=== PATIENT | male | born 1955 | race Caucasian/White ===

== ENCOUNTER 2016-09-29 08:51 | Emergency (ER) | payer BC ==
[2016-09-29 09:11] VITALS: BP 170/93
[2016-09-29] MEDS ORDERED: predniSONE TAB* 20 MG PO ONE (09:44)
[2016-09-29] MEDS ORDERED: Albuterol/Ipratropium NEB.SOL* Albuterol 2.5 MG/Ipratropium 0.5 MG 3 ML INH ONE ×2 (09:44)
--- NOTE | 2016-09-29 10:03 | ED ---
Albaro Edouard Alok, scribed for Iman Carmen MD on 09/29/16 at 0944 . Respiratory - HPI Summary HPI Summary: 61 y/o male presents to the accompanied by his with a productive cough for the last 5 days. Pt states he has been coughing green sputum and states he feels a "thickness" in the back of his throat. Pt also notes head congestion with generally clear rhinorrhea for the past 5 days as well but states it was green like his productive cough yesterday. Pt also notes diaphoresis while at rest but has not taken his temperature at home. The pt notes wheezing especially when in supine position. Pt denies ear pain currently but states he had right ear throbbing yesterday. Pt denies sore throat, abd pain or diarrhea. No cp, sob. No h/o lung disease. Pt is a heavy smoker but has not smoked for the past week. Pt states he was last with a friend 1 week ago who was healthy at the time but now has been diagnosed with PNA. PMHx includes medically controlled chronic back pain and HTN. Patient medication reviewed at visit. - History of Current Complaint Chief Complaint: UCRespiratory Stated Complaint: COUGH CONGESTION Time Seen by Provider: 09/29/16 09:13 Hx Obtained From: Patient Onset/Duration: Gradual Onset, Lasting Weeks, Still Present Timing: Constant Initial Severity: Moderate Current Severity: Moderate Character: Cough (Productive) Sputum Amount: Moderate Sputum Color: Clear, Green Aggravating Factor(s): Other - supine position Alleviating Factor(s): Nothing Associated Signs and Symptoms: Wheezing, Diaphoresis, Nasal Congestion - Allergy/Home Medications Allergies/Adverse Reactions: Allergies Allergy/AdvReac Type Severity Reaction Status Date / Time No Known Allergies Allergy Verified 09/29/16 09:11 Home Medications: Home Medications Hydrochlorothiazide TAB* [Hydrodiuril TAB*] 25 mg PO DAILY 09/29/16 [History Confirmed 09/29/16] Irbesartan [Avapro] 300 mg PO 09/29/16 [History] oxyCODONE TAB* [Roxycodone TAB 5 mg*] 5 mg PO Q4H PRN 09/29/16 [History Confirmed 09/29/16] PMH/Surg Hx/FS Hx/Imm Hx Previously Healthy: No Endocrine/Hematology History: Reports: Hx Diabetes - boarderline Denies: Hx Thyroid Disease Cardiovascular History: Reports: Hx Hypertension Respiratory History: Denies: Hx Asthma, Hx Chronic Obstructive Pulmonary Disease (COPD) GI History: Denies: Hx Ulcer Infectious Disease History: No Infectious Disease History: Denies: Hx Hepatitis, Hx Human Immunodeficiency Virus (HIV), Traveled Outside the [place] in Last 30 Days - Family History Known Family History: Positive: Hypertension, Diabetes - Social History Lives: With Family Alcohol Use: None Substance Use Type: Reports: None Smoking Status (MU): Heavy Every Day Tobacco Smoker Amount Used/How Often: 2 pks per day Review of Systems Positive: Fatigue, Skin Diaphoresis, Other - decreased appetitie Eyes: Negative Positive: Ear Ache - Yesterday, Nasal Discharge. Negative: Sore Throat Cardiovascular: Negative Positive: Cough. Negative: Shortness Of Breath Negative: Abdominal Pain, Diarrhea Genitourinary: Negative Musculoskeletal: Negative Skin: Negative Neurological: Negative Psychological: Normal All Other Systems Reviewed And Are Negative: Yes Physical Exam Triage Information Reviewed: Yes Vital Signs On Initial Exam: Initial Vitals Temp Pulse Resp BP Pulse Ox 96.6 F 102 20 170/93 87 09/29/16 09:03 09/29/16 09:03 09/29/16 09:03 09/29/16 09:03 09/29/16 09:03 Vital Signs Reviewed: Yes Appearance: Positive: Well-Appearing, No Pain Distress Skin: Positive: Warm, Skin Color Reflects Adequate Perfusion, Dry Head/Face: Positive: Normal Head/Face Inspection Eyes: Positive: Normal, EOMI, JOSEPH ENT: Positive: Normal ENT inspection, Hearing grossly normal, Pharynx normal, TMs normal, Other - fullness in oropharynx - no erythema, exudate Neck: Positive: Supple, Nontender, No Lymphadenopathy Respiratory/Lung Sounds: Positive: Wheezes - scattered wheeze + coarse cough with green sputum No accessory muscle use or increased WOB Cardiovascular: Positive: Normal, RRR Abdomen Description: Positive: Nontender, No Organomegaly, Soft Bowel Sounds: Positive: Present Musculoskeletal: Positive: Normal Neurological: Positive: Normal, Sensory/Motor Intact, Alert, Oriented to Person Place, Time Psychiatric: Positive: Normal AVPU Assessment: Alert - Shaji Coma Scale Best Eye Response: 4 - Spontaneous Best Motor Response: 6 - Obeys Commands Best Verbal Response: 5 - Oriented Diagnostics - Vital Signs Vital Signs Temp Pulse Resp BP Pulse Ox 09/29/16 09:20 97.5 F 09/29/16 09:03 96.6 F 102 20 170/93 87 - Laboratory Lab Statement: Any lab studies that have been ordered have been reviewed, and results considered in the medical decision making process. - Radiology CXR Xray Interpretation: Positive (See Comments) - IMPRESSION: NO ACTIVE DISEASE. SUGGEST FOLLOW-UP CLINICALLY INDICATED. Radiology Interpretation Completed By: Radiologist Re-Evaluation - Re-Evaluation First Eval Re-Evaluation Time: 11:17 Comment: PT states breathing feels better. Pt continues with sinus congestion. No CP, No SOB. BS clear throughout. No increased WOB - speaking full sentences. Pt now with RA sat 82-84% confirmed on 2 fingers. d/w pt and - pt in agreement for transfer to [facility]. d/w MAINE Solares - and [facility] - accepting in transfer. o2 placed on pt. IV hep loc. transfer forms complete Disposition - Course Assessment/Plan: PT with productive cough x 5 days - green. Pt with decreased sat at triage. Pt with a h/o heavy tobacco use. diff included COPD, bronchitis , URI, pna. d/w pt and concern related to decreaed oxygen sat. Pt adamat does not want to go to hospital. Will give nebs, steroids and cxr. will reassess - Diagnoses Provider Diagnoses: Hypoxia Discharge - Discharge Plan Condition: Good Disposition: OTHER Discharge Disposition Comment: [facility] by EMS for additional eval The documentation as recorded by the Albaro arrington Alok accurately reflects the service I personally performed and the decisions made by me, Iman Carmen MD.
--- NOTE | 2016-09-29 10:38 | RAD ---
INDICATION: Cough COMPARISON: None TECHNIQUE: PA and lateral dual-energy views were obtained. FINDINGS: Bones/Soft Tissues: There are no acute bony findings. Cardiomediastinal: The heart is normal in size. Central pulmonary vessels are mildly prominent. Lungs: There is mild hyperinflation with presumed mild chronic interstitial change. Pleura: There are no pleural effusions. Other: None IMPRESSION: NO ACTIVE DISEASE. SUGGEST FOLLOW-UP CLINICALLY INDICATED.
== END 2016-09-29 12:00 ==
LOC: UCEAST 08:51
DX: R09.02 Hypoxemia (principal); I10 Essential (primary) hypertension; R73.03 Prediabetes; F17.290 Nicotine dependence, other tobacco product, uncomplicated
CPT/HCPCS: 71020; 99213; A9270-GY; G0463; J7512

== ENCOUNTER 2016-09-29 12:11 | Inpatient (IN) | payer BC ==
[2016-09-29] MEDS ORDERED: Albuterol/Ipratropium NEB.SOL* Albuterol 2.5 MG/Ipratropium 0.5 MG 3 ML INH ONE ×2 (12:15→13:51)
[2016-09-29] MEDS ORDERED: Albuterol/Ipratropium NEB.SOL* Albuterol 2.5 MG/Ipratropium 0.5 MG 3 ML ONE (12:17)
[2016-09-29] MEDS ORDERED: oxyCODONE TAB* 5 MG TAB PO ONE (13:55)
[2016-09-29 14:00] LABS: Hematocrit 49 % (42-52); Hemoglobin 16.1 g/dl (14.0-18.0); Mean Corpuscular HGB Conc 33 g/dl (31-36); Mean Corpuscular Hemoglobin 29 pg (27-31); Mean Corpuscular Volume 88 fL (80-94); Mean Platelet Volume 8 um3 (7.4-10.4); Red Blood Count 5.53 10^6/ul (4.0-5.4); Red Cell Distribution Width 14 % (10.5-15); White Blood Count 13.9 10^3/ul (3.5-10.8)
[2016-09-29 14:24] LABS: BUN/Creatinine Ratio 10.8 (8-20); Calcium 9.4 mg/dL (8.6-10.3); EGFR African American 95.8 (>60); EGFR Non-African American 74.5 (>60); Globulin 3.4 g/dL (2-4); Potassium 3.7 mmol/L (3.5-5.0); Total Bilirubin 0.6 mg/dL (0.2-1.0); Total Protein 7.4 g/dL (6.4-8.9); Troponin I 0.01 ng/mL (<0.04)
[2016-09-29 15:10] LABS: C Reactive Protein 62.91 mg/L (< 5.00)
[2016-09-29] MEDS ORDERED: Ondansetron INJ* 2 MG/ML VIAL IV PRN (17:17)
[2016-09-29] MEDS ORDERED: Albuterol/Ipratropium NEB.SOL* Albuterol 2.5 MG/Ipratropium 0.5 MG 3 ML INH PRN (17:17)
[2016-09-29] MEDS ORDERED: methylPREDNISolone SOD SUCC* 125 MG 2 ML VIAL IV ONE (17:24)
--- NOTE | 2016-09-29 18:31 | ED ---
Javan, DoctorJemma, scribed for Junior Menendez MD on 09/29/16 at 1218 . Shortness of Breath - HPI Summary HPI Summary: 61 year old [facility]o cough with green sputum for 1 week. He additionally reports SOB/difficulty breathing after exertion. Pt does not use nebulizer or any other breathing treatment at home; he has a PMHx of HTN. - History of Current Complaint Chief Complaint: EDShortnessOfBreath Time Seen by Provider: 09/29/16 12:15 Hx Obtained From: Patient Onset/Duration: Lasting Weeks - 1 week Dyspnea At: Exertion Associated Signs & Symptoms: Cough (Productive) - cough with green sputum - Allergy/Home Medications Allergies/Adverse Reactions: Allergies Allergy/AdvReac Type Severity Reaction Status Date / Time No Known Allergies Allergy Verified 09/29/16 09:11 Home Medications: Home Medications Irbesartan (NF) [Avapro (NF)] 300 mg PO DAILY 09/29/16 [History Confirmed ] PMH/Surg Hx/FS Hx/Imm Hx Endocrine/Hematology History: Reports: Hx Diabetes - boarderline Denies: Hx Thyroid Disease Cardiovascular History: Reports: Hx Hypertension Respiratory History: Denies: Hx Asthma, Hx Chronic Obstructive Pulmonary Disease (COPD) GI History: Denies: Hx Ulcer Infectious Disease History: Denies: Hx Hepatitis, Hx Human Immunodeficiency Virus (HIV) - Family History Known Family History: Positive: Hypertension, Diabetes - Social History Alcohol Use: None Substance Use Type: Reports: None Hx Tobacco Use: Yes Smoking Status (MU): Heavy Every Day Tobacco Smoker Amount Used/How Often: 2 pks per day Review of Systems Negative: Fever Positive: Shortness Of Breath - on exertion , Cough - productive All Other Systems Reviewed And Are Negative: Yes Physical Exam Triage Information Reviewed: Yes Vital Signs On Initial Exam: Initial Vitals Temp Pulse Resp BP Pulse Ox 97.6 F 97 18 166/91 94 09/29/16 12:13 09/29/16 12:13 09/29/16 12:13 09/29/16 12:13 09/29/16 12:13 Vital Signs Reviewed: Yes Appearance: Positive: Well-Appearing, No Pain Distress Skin: Positive: Warm, Skin Color Reflects Adequate Perfusion, Dry Head/Face: Positive: Normal Head/Face Inspection Eyes: Positive: Normal ENT: Positive: Normal ENT inspection Neck: Positive: Supple, Nontender Respiratory/Lung Sounds: Positive: Decreased Breath Sounds, Wheezes - in all lung velasco. Negative: Rales, Rhonchi Cardiovascular: Positive: RRR Abdomen Description: Positive: Nontender, Soft Bowel Sounds: Positive: Present Musculoskeletal: Positive: Normal Neurological: Positive: Normal Psychiatric: Positive: Normal Diagnostics - Vital Signs Vital Signs Temp Pulse Resp BP Pulse Ox 09/29/16 17:16 111 22 147/86 91 09/29/16 15:44 99 16 88 09/29/16 15:00 101 22 144/80 96 09/29/16 13:17 104 20 167/81 92 09/29/16 12:27 103 18 93 09/29/16 12:13 97.6 F 97 18 166/91 94 - Laboratory Lab Results: Lab Results 09/29/16 09/29/16 09/29/16 Range/Units 13:50 13:50 13:50 WBC 13.9 H (3.5-10.8) 10^3/ul RBC 5.53 H (4.0-5.4) 10^6/ul Hgb 16.1 (14.0-18.0) g/dl Hct 49 (42-52) % MCV 88 (80-94) fL MCH 29 (27-31) pg MCHC 33 (31-36) g/dl RDW 14 (10.5-15) % Plt Count 185 (150-450) 10^3/ul MPV 8 (7.4-10.4) um3 Neut % (Auto) 93.4 H (38-83) % Lymph % (Auto) 3.7 L (25-47) % Garfield % (Auto) 1.9 (1-9) % Eos % (Auto) 0 (0-6) % Baso % (Auto) 1.0 (0-2) % Absolute Neuts (auto) 13.0 H (1.5-7.7) 10^3/ul Absolute Lymphs (auto) 0.5 L (1.0-4.8) 10^3/ul Absolute Monos (auto) 0.3 (0-0.8) 10^3/ul Absolute Eos (auto) 0 (0-0.6) 10^3/ul Absolute Basos (auto) 0.1 (0-0.2) 10^3/ul Absolute Nucleated RBC 0.04 10^3/ul Nucleated RBC % 0.3 Sodium 132 L (133-145) mmol/L Potassium 3.7 (3.5-5.0) mmol/L Chloride 94 L (101-111) mmol/L Carbon Dioxide 28 (22-32) mmol/L Anion Gap 10 (2-11) mmol/L BUN 11 (6-24) mg/dL Creatinine 1.02 (0.67-1.17) mg/dL Est GFR ( Amer) 95.8 (>60) Est GFR (Non-Af Amer) 74.5 (>60) BUN/Creatinine Ratio 10.8 (8-20) Glucose 231 H (70-100) mg/dL Lactic Acid 1.8 (0.5-2.0) mmol/L Calcium 9.4 (8.6-10.3) mg/dL Total Bilirubin 0.60 (0.2-1.0) mg/dL AST 21 (13-39) U/L ALT 33 (7-52) U/L Alkaline Phosphatase 55 (34-104) U/L Troponin I 0.01 (<0.04) ng/mL C-Reactive Protein 62.91 H (< 5.00) mg/L Total Protein 7.4 (6.4-8.9) g/dL Albumin 4.0 (3.2-5.2) g/dL Globulin 3.4 (2-4) g/dL Albumin/Globulin Ratio 1.2 (1-3) Result Diagrams: 09/29/16 13:50 09/29/16 13:50 Lab Statement: Any lab studies that have been ordered have been reviewed, and results considered in the medical decision making process. - EKG 1353 EKG Rhythm: Sinus Tachycardia - [address] Segment: Normal Ectopy: None Re-Evaluation - Re-Evaluation First Eval Re-Evaluation Time: 13:25 Change: Unchanged Comment: Re-eval to complete physical examination Second Eval Re-Evaluation Time: 16:21 Comment: Discussed plan to admit pt to hospital Course/Dx - Course Course Of Treatment: Mr. Dixon presented with likely ab exacerbation of previously undiagnosed COPD. He is a big smoker. He improved wome with treatment here but not enough to turn around. - Diagnoses Provider Diagnoses: COPD with acute exacerbation, Bronchitis - Physician Notifications Discussed Care of Patient With: 1520 - Discussed care of pt with Dr. Barriga ( Hospitalist). She agrees to admit pt. Discharge - Discharge Plan Condition: Stable Disposition: ADMITTED TO [facility] Referrals: No Primary Care Phys,NOPCP [Primary Care Provider] - The documentation as recorded by the Doctor arrington Tahera accurately reflects the service I personally performed and the decisions made by me, Junior Menendez MD.
[2016-09-29] MEDS ORDERED: oxyCODONE TAB* 5 MG TAB ONE (20:40)
[2016-09-29] MEDS: oxyCODONE TAB* 5 MG TAB PO PRN (20:45)
[2016-09-29] MEDS: cefTRIAXone VIAL(*) 1,000 MG in NS 0.9% 50 ML* 50 ML IVPB SCH (20:50)
[2016-09-29] MEDS: Azithromycin IV(*) 500 MG in NS 0.9% 250 ML* 250 ML IVPB SCH (21:21)
[2016-09-29] MEDS: Enoxaparin(*) 40 MG/0.4 ML SYR SUBCUT SCH (21:21)
--- NOTE | 2016-09-29 23:50 | HP ---
ADMISSION HISTORY AND PHYSICAL: DATE OF ADMISSION: 09/29/16 PRIMARY CARE PROVIDER: Not listed. ADMITTING PROVIDER: MAINE Zapata SUPERVISING PHYSICIAN: Suad Barriga DO * (dictated by MAINE Zapata) CHIEF COMPLAINT: Cough and shortness of breath. HISTORY OF PRESENT ILLNESS: This is a 61-year-old gentleman with a long history of smoking as well as chronic back pain and hypertension who presented to [facility] and was transferred to the emergency department with complaints of cough and shortness of breath. He was noted to be profoundly hypoxic. Initial chest x-ray was read as unremarkable, but the patient was requiring 4 L via nasal cannula to maintain oxygen saturations in the low 90s. The patient states that he has been afebrile at home. He had one night with some mild chills, but states it was damp outside and thinks that is why he was chilled. He has been intermittently short of breath, but not severely so. He has recently spent significant amount of time with one of his friends who was diagnosed with pneumonia within the last couple of days. He denies associated GI symptoms including abdominal pain, nausea, vomiting, and diarrhea. He denies any other recent illnesses. No recent skin rashes. No associated chest pain. PAST MEDICAL HISTORY: 1. Chronic back pain. 2. Hypertension. PAST SURGICAL HISTORY: None. HOME MEDICATIONS: 1. Hydrochlorothiazide 25 mg p.o. daily. 2. Irbesartan 300 mg p.o. daily. 3. Oxycodone 5 mg p.o. q.4 hours as needed for pain. SOCIAL HISTORY: The patient lives at home with his . He currently received disability. He has a 53-[id number]-year smoking history and quit about 1 week ago and quite motivated to stay smoke free. The patient denies any regular alcohol consumption. REVIEW OF SYSTEMS: As noted above in HPI. All other systems reviewed and negative. PHYSICAL EXAMINATION GENERAL: This is a very pleasant 61-year-old gentleman sitting upright with the side of his hospital stretcher, who does not appear to be in any acute distress. VITAL SIGNS: Temperature 97.6 degrees Fahrenheit, pulse 97 beats per minute, respiratory rate 18, oxygen saturation 94% on 4 L via nasal cannula, and blood pressure 166/91 mmHg. HEENT: Head is normocephalic, atraumatic. Mucous membranes are pink and moist. The patient has poor dental hygiene and missing a few teeth. RESPIRATORY: The patient has a normal work of breathing. He has some reduced breath sounds throughout all lung velasco. No specific wheezes or rhonchi appreciated, perhaps some faint crackles appreciated in the right lower lung field. CARDIOVASCULAR: Heart has a regular rate and rhythm without murmurs, rubs or gallops. ABDOMEN: Abdomen is soft and nontender to palpation. EXTREMITIES: No lower extremity edema. PSYCH: The patient is alert and appropriately oriented. SKIN: Limited exam shows no concerning rashes or lesions. LABORATORY EVALUATION: CBC shows a white blood cell count of 13,900, hemoglobin 16.1 g/dL and platelet count of 185,000. Comprehensive metabolic panel shows a sodium of 132 mmol/L, potassium 3.7, BUN 11, creatinine 1.02, random glucose of 231. Troponin negative at 0.01. CRP elevated at 62.9. IMAGING: EKG shows a normal sinus rhythm. Chest x-ray is read by Radiology as no acute process but upon personal review, it appears that perhaps there is a mild right lower lobe infiltrate. ASSESSMENT AND PLAN: This is a 61-year-old gentleman with a significant smoking history as well as chronic back pain and hypertension who presented with complaints of cough and shortness of breath. Also noted to be profoundly hypoxic. Possible right lower infiltrate appreciated on chest x-ray. 1. Chronic obstructive pulmonary disease exacerbation with likely pneumonia. The patient is quite hypoxic requiring 4 L via nasal cannula to maintain oxygen saturations in the low 90s. He does not have a significant wheeze noted on exam , but does have reduced breath sounds throughout and a significant smoking history. He has mild infiltrates noted on the right lower lobe on personal review. We will plan to empirically treat for a pneumonia with ceftriaxone and azithromycin as well as chronic obstructive pulmonary disease exacerbation with IV corticosteroids, DuoNebs and start Spiriva. 2. Hyperglycemia. The patient is noted to have a random glucose of 231. We will plan to add a hemoglobin A1c to evaluate further. 3. Obesity with a BMI of 39. 4. Hypertension. Plan to continue hydrochlorothiazide and irbesartan. 5. Chronic back pain. Continue oxycodone as prescribed at home. 6. Code status. The patient is full code. 7. DVT prophylaxis. I will start Lovenox 40 mg subcu daily. DISPOSITION: The patient is being admitted to inpatient status with anticipated length of stay of greater than 2 midnights for pneumonia and COPD exacerbation. MAINE ZAPATA [id number]/[facility] #: [id number] [facility] CENTERGama
[2016-09-30] MEDS: oxyCODONE TAB* 5 MG TAB PO PRN ×4 (06:34→21:25)
[2016-09-30 07:12] LABS: Hematocrit 48 % (42-52); Mean Corpuscular HGB Conc 33 g/dl (31-36); Mean Corpuscular Hemoglobin 29 pg (27-31); Mean Corpuscular Volume 88 fL (80-94); Mean Platelet Volume 9 um3 (7.4-10.4); Red Blood Count 5.47 10^6/ul (4.0-5.4); Red Cell Distribution Width 14 % (10.5-15); White Blood Count 18.1 10^3/ul (3.5-10.8)
[2016-09-30] MEDS ORDERED: Dextrose 50% Syringe 50 ML* 25 GM/50 ML SYRINGE IV PUSH PRN (07:12)
[2016-09-30 07:14] LABS: BUN/Creatinine Ratio 14.4 (8-20); Calcium 9.7 mg/dL (8.6-10.3); EGFR African American 93.7 (>60); EGFR Non-African American 72.8 (>60); Potassium 4.4 mmol/L (3.5-5.0)
[2016-09-30 07:19] LABS: Add Diff/Slide Review? Slide Review Added; Comments Flag Yes
[2016-09-30] MEDS: Tiotropium CAP.INH* CAP.INH/18 MCG INH SCH (08:30)
[2016-09-30] MEDS ORDERED: Losartan TAB* 25 MG PO SCH (09:00)
[2016-09-30] MEDS ORDERED: Hydrochlorothiazide TAB* 25 MG PO SCH (09:00)
[2016-09-30] MEDS ORDERED: Spiriva Inhaler DEVICE* 1 EACH DEVICE INH ONE (09:00)
[2016-09-30] MEDS: Insulin LISPRO* 1 UNITS UNIT SUBCUT SCH ×3 (09:02→17:55)
[2016-09-30] MEDS: methylPREDNISolone SOD SUCC* 125 MG 2 ML VIAL IV SCH (09:02)
--- NOTE | 2016-09-30 09:48 | PN ---
Subjective Date of Service: 09/30/16 Interval History: This is a 61 yo gentleman admitted yesterday with cough and SOB, being treated for a COPD exacerbation and PNA. Patient reports that his cough and dyspnea have improved overnight, but his oxygen needs have increased. He denies any new complaints. Objective Active Medications: Albuterol/Ipratropium (Duoneb (Albuterol 2.5 Mg/Ipratropium 0.5 Mg)) 1 neb INH [id number] AWAKE PRN PRN Reason: sob/wheexing Dextrose (D50w Syringe 50 Ml*) 12.5 gm IV PUSH .FOR FS < 60 - SS PRN PRN Reason: FS < 60 Enoxaparin Sodium (Lovenox(*)) 40 mg SUBCUT Q24H [facility] Last Admin: 09/29/16 21:21 Dose: 40 mg Hydrochlorothiazide (Hydrodiuril Tab*) 25 mg PO DAILY [facility] Last Admin: 09/30/16 09:01 Dose: 25 mg Ceftriaxone Sodium 1,000 mg/ (Sodium Chloride) 50 mls @ 200 mls/hr IVPB Q24H [facility] Last Admin: 09/29/16 20:50 Dose: 200 mls/hr Azithromycin 500 mg/ Sodium (Chloride) 250 mls @ 250 mls/hr IVPB Q24H [facility] Last Admin: 09/29/16 21:21 Dose: 250 mls/hr Insulin Human Lispro (Humalog*) 0 units SUBCUT AC [facility] PRN Reason: Protocol Last Admin: 09/30/16 09:02 Dose: 2 unit Losartan Potassium (Cozaar Tab*) 100 mg PO DAILY [facility] Last Admin: 09/30/16 09:01 Dose: 100 mg Methylprednisolone Sodium Succinate (Solu-Medrol*) 60 mg IV DAILY [facility] Last Admin: 09/30/16 09:02 Dose: 60 mg Ondansetron HCl (Zofran Inj*) 4 mg IV Q4H PRN PRN Reason: NAUSEA/VOMITING Oxycodone HCl (Roxycodone Tab*) 5 mg PO Q4H PRN PRN Reason: PAIN Last Admin: 09/30/16 06:34 Dose: 5 mg Tiotropium [place] (Spiriva Cap.Inh*) 1 cap INH DAILY [facility] Last Admin: 09/30/16 08:30 Dose: 1 cap Vital Signs: Temp Pulse Resp BP Pulse Ox 98.2 F 105 18 170/95 93 09/30/16 07:19 09/30/16 08:31 09/30/16 08:34 09/30/16 07:19 09/30/16 08:31 Oxygen Devices in Use Now: Venturi Mask - 7L Appearance: This is a well appearing middle aged gentleman in NAD Neck: NL Appearance and Movements; NL JVP Respiratory: Symmetrical Chest Expansion and Respiratory Effort, - - improved air exchange, no wheezing or rhonchi, few crackles and lung bases Cardiovascular: NL Sounds; No Murmurs; No JVD, RRR Abdominal: NL Sounds; No Tenderness; No Distention Extremities: - - trace edema Skin: No Rash or Ulcers Neurological: Alert and Oriented x 3 Result Diagrams: 09/30/16 06:20 09/30/16 06:20 Additional Lab and Data: . Diagnostic Imaging: CXR - NAD per radiology, possible RLL infiltrate per personal review Assess/Plan/Problems-Billing Assessment: This is a 61 yo gentleman with a long smoking history as well HTN and chronic back pain and obesity who presented with c/o SOB and cough admitted for COPD exacerbation and PNA. - Patient Problems (1) PNA (pneumonia) Comment: Will plan to repeat CXR today, if remains negative will obtain CT of the chest as he remains severely hypoxic, now requiring 7L of supp O2 (2) COPD exacerbation Comment: No prior diagnosis of COPD, but an extensive smoking history Treating with IV corticosteroids, DuoNebs and started Spiriva (3) Diabetes Comment: This is a new diagnosis HgbA1c 6.8% Offered DM educator consult which he declined Will monitor AC glucose and cover with SS Humalog during inpatient stay, plan to dc with Metformin (4) HTN (hypertension) Comment: Moderately hypertensive Cont home HCTZ and ARB Cont to monitor (5) Morbid obesity Comment: BMI 41 (6) Chronic back pain Comment: Cont prn oxycodone (7) Full code status (8) DVT prophylaxis Comment: SQ Lovenox Status and Disposition: Patient requires continued hospital stay. Inpatient. Anticipate additional LOS of 2-3 days
--- NOTE | 2016-09-30 10:55 | RAD ---
INDICATION: COPD exacerbation. Assess for pneumonia. COMPARISON: September 29, 2016 TECHNIQUE: Dual energy PA and routine lateral views of the chest were obtained. REPORT: Elevated lung volumes and mild prominence of the interstitial markings. Minimal linear subsegmental atelectasis at the RIGHT lung base. No alveolar consolidation, focal pulmonary lesion, pleural effusion, or pneumothorax. The heart, pulmonary vasculature, and mediastinal contours are unremarkable. IMPRESSION: Stigmata of COPD. No compelling evidence for pneumonia.
[2016-09-30] MEDS ORDERED: Saline NASAL SPRAY 0.65%* BTL BOTH NARES PRN (16:26)
--- NOTE | 2016-09-30 16:26 | RAD ---
INDICATION: Hypoxia, suspected pneumonia. COMPARISON: Comparison is made with a prior chest x-ray study from September 30, 2016. TECHNIQUE: A CT scan of the chest was performed without intravenous contrast. Contiguous axial sections were obtained from the lung apices through the lung bases. Images were reconstructed in the coronal and sagittal planes. FINDINGS: There is a patchy reticular nodular infiltrate present in the right lower lobe most consistent with pneumonia. The left lung appears clear. No pleural effusion is present. The lungs are hyperinflated with flattening of the diaphragms suggestive of chronic obstructive pulmonary disease. There are mildly prominent lymph nodes in the right peritracheal precarinal and subcarinal regions measuring up to 1.2 cm in transverse dimension. No enlarged hilar lymph nodes are seen. The heart is within normal limits in size. No pericardial effusion is present. The thoracic aorta is normal in caliber. Images of the upper abdomen demonstrate fatty infiltration of the liver. No significant focal osseous abnormality is seen. IMPRESSION: 1. PATCHY RETICULAR NODULAR INFILTRATE IN THE RIGHT LOWER LOBE MOST CONSISTENT WITH PNEUMONIA. 2. MILDLY PROMINENT MEDIASTINAL LYMPH NODES. 3. FINDINGS CONSISTENT WITH COPD. 4. HEPATIC STEATOSIS.
[2016-09-30] MEDS: Enoxaparin(*) 40 MG/0.4 ML SYR SUBCUT SCH (16:54)
[2016-09-30] MEDS: cefTRIAXone VIAL(*) 1,000 MG in NS 0.9% 50 ML* 50 ML IVPB SCH (20:10)
[2016-09-30] MEDS: Azithromycin IV(*) 500 MG in NS 0.9% 250 ML* 250 ML IVPB SCH (20:52)
[2016-10-01] MEDS: Losartan TAB* 25 MG PO SCH (05:31)
[2016-10-01] MEDS: Hydrochlorothiazide TAB* 25 MG PO SCH (05:32)
[2016-10-01] MEDS: oxyCODONE TAB* 5 MG TAB PO PRN ×4 (05:36→21:34)
[2016-10-01] MEDS: Insulin LISPRO* 1 UNITS UNIT SUBCUT SCH ×3 (07:40→17:15)
[2016-10-01] MEDS: Tiotropium CAP.INH* CAP.INH/18 MCG INH SCH (08:15)
--- NOTE | 2016-10-01 09:09 | CONS ---
PULMONARY CONSULTATION REPORT: DATE OF CONSULT: 10/01/16 CONSULTATION REQUESTED BY: MAINE Platt HISTORY OF PRESENT ILLNESS: The patient is a 61-year-old, morbidly obese male with history of significant smoking, chronic back pain who presented to the [facility] and then was transferred to the emergency room for evaluation of cough and shortness of breath. The patient was also noted to be hypoxemic upon evaluation in emergency room, required O2 supplementation at 4 L to maintain oxygen saturation in the low 90s. The patient reports sick contacts recently, he was exposed to friend with bronchitis recently. The patient reports productive cough and worsening shortness of breath. The patient also reports subjective chills. reports loud snoring, gasping arousals, witnessed apneas, disruptive sleep, and restless sleep. The patient denied abdominal pain, nausea, vomiting, diarrhea, headaches, skin rash, chest pain, urinary complaints. PAST MEDICAL HISTORY: 1. Chronic back pain. 2. Hypertension. PAST SURGICAL HISTORY: Denied any surgery. HOME MEDICATIONS: 1. Hydrochlorothiazide 25 mg daily. 2. Irbesartan 300 mg daily. 3. Oxycodone 5 mg q.4 hours as needed for pain. SOCIAL HISTORY: The patient lives at home with . He is currently on disability due to chronic back pain. He has [id number] smoking history, quit a week ago. Denies alcohol or drug abuse. REVIEW OF SYSTEMS: All 14 systems reviewed and as per HPI. PHYSICAL EXAM: Morbidly obese male, in bed, in no apparent distress. Vital Signs: Temperature 98.3, pulse 86 beats per minute, respiratory rate 18, O2 sat 100% on 5 L, blood pressure 151/91. HEENT: Pupils equal and reactive to light , mucous membranes moist, poor dental hygiene, missing a few teeth. Respiratory : Diminished air entry bilaterally, scattered wheeze present, crackles at the right base. Cardiovascular: Regular, no murmurs, gallops or rubs. Abdomen: Obese, nontender, nondistended. Bowel sounds present. Extremities: Normal range of motion, no edema. Skin: No rashes or bruits. Neurological Exam: Alert, awake, and oriented x3. No focal deficits. LABORATORY DATA: WBC count 18.1, hemoglobin 16.0, hematocrit 48, platelet count of 215, D-dimer less than 200. Sodium 136, potassium 4.4, chloride 96, bicarb 33, BUN 15, creatinine 1.04, lactic acid 1.8. Chest x-ray upon admission was personally reviewed by me - evidence of hyperinflation. CT scan of the chest without contrast was personally reviewed by me - patient with mild patchy reticulonodular opacity in the right lower lobe with mildly prominent mediastinal nodes. The patient also with evidence of hyperinflation consistent with COPD. IMPRESSION/RECOMMENDATIONS: 61-year-old morbidly obese male with significant smoking history admitted with cough, shortness of breath secondary to pneumonia and COPD exacerbation. 1. Acute COPD exacerbation. 2. Community-acquired pneumonia. 3. Hypoxemic respiratory failure likely secondary to a combination of pneumonia , COPD exacerbation, and underlying hypercapnia. 4. Morbid obesity with suspicion for sleep apnea. Agree with current coverage for community-acquired pneumonia. Continue with steroids, can change to oral. Continue with bronchodilators. Would recommend discharging home on Spiriva and albuterol as needed. The patient will need PFTs and sleep study as outpatient. The patient might need O2 supplementation upon discharge. Please obtain blood gas on room air. Please obtain echocardiogram for evaluation of pulmonary hypertension. Thank you for allowing me to participate in the care of your patient. Will follow up with you. [id number]/[facility] #: [id number] [place]
--- NOTE | 2016-10-01 09:20 | PN ---
Subjective Date of Service: 10/01/16 Interval History: Patient reports continued improvement. Cough improving. Anxious to get home. Evaluated by Dr Villar this am. No abdominal pain, n/v. Amb sat measured at 85% on RA this am and resting sat down to 87%, but up to 91- 92% with deep inspiration. Objective Active Medications: Albuterol/Ipratropium (Duoneb (Albuterol 2.5 Mg/Ipratropium 0.5 Mg)) 1 neb INH [id number] AWAKE PRN PRN Reason: sob/wheexing Dextrose (D50w Syringe 50 Ml*) 12.5 gm IV PUSH .FOR FS < 60 - SS PRN PRN Reason: FS < 60 Enoxaparin Sodium (Lovenox(*)) 40 mg SUBCUT Q24H [facility] Last Admin: 09/30/16 16:54 Dose: 40 mg Hydrochlorothiazide (Hydrodiuril Tab*) 25 mg PO 0600 [facility] Last Admin: 10/01/16 05:32 Dose: 25 mg Ceftriaxone Sodium 1,000 mg/ (Sodium Chloride) 50 mls @ 200 mls/hr IVPB Q24H [facility] Last Admin: 09/30/16 20:10 Dose: 200 mls/hr Azithromycin 500 mg/ Sodium (Chloride) 250 mls @ 250 mls/hr IVPB Q24H [facility] Last Admin: 09/30/16 20:52 Dose: 250 mls/hr Insulin Human Lispro (Humalog*) 0 units SUBCUT AC [facility] PRN Reason: Protocol Last Admin: 10/01/16 07:40 Dose: Not Given Losartan Potassium (Cozaar Tab*) 100 mg PO 0600 [facility] Last Admin: 10/01/16 05:31 Dose: 100 mg Methylprednisolone Sodium Succinate (Solu-Medrol*) 60 mg IV DAILY [facility] Last Admin: 09/30/16 09:02 Dose: 60 mg Ondansetron HCl (Zofran Inj*) 4 mg IV Q4H PRN PRN Reason: NAUSEA/VOMITING Oxycodone HCl (Roxycodone Tab*) 5 mg PO Q4H PRN PRN Reason: PAIN Last Admin: 10/01/16 05:36 Dose: 5 mg Sodium Chloride (Sodium Chloride 0.65% Nasal [place]*) 1 spray BOTH NARES Q4H PRN PRN Reason: nasal congestion Tiotropium [place] (Spiriva Cap.Inh*) 1 cap INH DAILY [facility] Last Admin: 10/01/16 08:15 Dose: 1 cap Vital Signs: Temp Pulse Resp BP Pulse Ox 98.6 F 72 16 165/94 95 10/01/16 07:32 10/01/16 08:21 10/01/16 08:21 10/01/16 07:32 10/01/16 08:21 Oxygen Devices in Use Now: Venturi Mask - 7L Appearance: Well appearing in NAD. He has removed his supp O2 to eat breakfast and denies dyspnea at rest Neck: NL Appearance and Movements; NL JVP Respiratory: Symmetrical Chest Expansion and Respiratory Effort, - - diffuse rhonchi and wheezing Cardiovascular: RRR Abdominal: NL Sounds; No Tenderness; No Distention Extremities: No Edema Skin: No Rash or Ulcers Neurological: Alert and Oriented x 3 Result Diagrams: 09/30/16 06:20 09/30/16 06:20 Additional Lab and Data: . Microbiology and Other Data: Microbiology 09/30/16 00:35 Aerobic Blood Culture - Preliminary Blood Venous No Growth Day 1 Anaerobic Blood Culture - Preliminary No Growth Day 1 09/30/16 00:27 Aerobic Blood Culture - Preliminary Blood Venous No Growth Day 1 Anaerobic Blood Culture - Preliminary No Growth Day 1 Diagnostic Imaging: CXR - NAD per radiology, possible RLL infiltrate per personal review Assess/Plan/Problems-Billing Assessment: This is a 61 yo gentleman with a long smoking history as well HTN and chronic back pain and obesity who presented with c/o SOB and cough admitted for COPD exacerbation and PNA. - Patient Problems (1) PNA (pneumonia) Comment: CT demonstrates a R sided infiltrate Noted clinical improvement Cont CAP coverage with Ceftriaxone Oxygen needs are improving Appreciate pulm consult (2) COPD exacerbation Comment: No prior diagnosis of COPD, but an extensive smoking history and changes c/w COPD on CT Treating with steroids, DuoNebs and started Spiriva Dr Villar requested RA ABG which has been ordered Suspect associated MEGHANN May require supp O2 at discharge (3) Diabetes Comment: This is a new diagnosis HgbA1c 6.8% Offered DM educator consult which he declined Will monitor AC glucose and cover with SS Humalog during inpatient stay, plan to dc with Metformin (4) HTN (hypertension) Comment: Moderately hypertensive, perhaps due to high dose steroids or poor control at baseline Cont home HCTZ and ARB Cont to monitor, consider adding amlodipine if hypertension persists (5) Morbid obesity Comment: BMI 41 (6) Chronic back pain Comment: Cont prn oxycodone (7) Full code status (8) DVT prophylaxis Comment: SQ Lovenox Status and Disposition: Patient requires continued hospital stay. Inpatient. Possible discharge tomorrow. May require supp O2 at discharge.
[2016-10-01 09:24] LABS: Hematocrit 50 % (42-52); Hemoglobin 16.5 g/dl (14.0-18.0); Mean Corpuscular HGB Conc 33 g/dl (31-36); Mean Corpuscular Hemoglobin 29 pg (27-31); Mean Corpuscular Volume 88 fL (80-94); Mean Platelet Volume 8 um3 (7.4-10.4); Red Blood Count 5.69 10^6/ul (4.0-5.4); Red Cell Distribution Width 14 % (10.5-15); White Blood Count 21.6 10^3/ul (3.5-10.8)
[2016-10-01 09:29] LABS: Add Diff/Slide Review? Slide Review Added; Comments Flag Yes
[2016-10-01] MEDS ORDERED: Perflutren Lipid Microsphere* 3 ML VIAL ONE (10:07)
[2016-10-01] MEDS: methylPREDNISolone SOD SUCC* 125 MG 2 ML VIAL IV SCH (10:29)
[2016-10-01 11:24] LABS: FIO2 2
[2016-10-01 11:28] LABS: PCO2 Arterial 48 mmHg (35-45)
--- NOTE | 2016-10-01 11:50 | ECHO ---
Patient: PAUL LANZA [facility] Rec#: [id number] : 1955 Date: 10/01/2016 Age: 61y Height: 172.72 cm / 68.0 in Weight: 122.47 kg / 269.9 lbs Sex: M BSA: 2.32 Room#: [facility] 1 Admit Date#: 09/29/2016 Type: Inpatient Referring: Benton Lazar Reading: Anne Zacarias MD Prep Cook: Sara HodgeRDCS,RDMS Transthoracic Echocardiogram Indication: Hypoxia, Respiratory Abnormality BP: 151/91 HR: 96 Rhythm: NSR Indications Respiratory Abnormality Findings History: Smoker, HTN, COPD Technical Comments: The study quality is poor. Completed 1040 The study is technically limited due to the patient's smoking history. Left Ventricle: The left ventricular chamber size is normal. Moderate concentric left ventricular hypertrophy is observed. Global left ventricular wall motion and contractility are within normal limits. The estimated ejection fraction is 60-65%. Abnormal left ventricular diastolic function is observed. Left Atrium: The left atrial chamber size is normal. Right Ventricle: The right ventricle wall thickness is mildly increased. The right ventricular cavity size is normal. The right ventricular global systolic function is moderately reduced. Right Atrium: The right atrium is not well visualized. Aortic Valve: There is no evidence of aortic valve thickening. There is no evidence of aortic regurgitation. There is no evidence of aortic stenosis. Mitral Valve: The mitral valve leaflets do not appear thickened. There is no evidence of mitral regurgitation. There is no evidence of mitral stenosis. Tricuspid Valve: The tricuspid valve leaflets are not thickened. There is a physiologic tricuspid regurgitation. Unable to estimate the right ventricular systolic pressure. Pulmonic Valve: The pulmonic valve structure is not well visualized. Pericardium: There is no significant pericardial effusion. Aorta: The aorta is not well visualized. There is no dilatation of the aortic arch. Pulmonary Artery: The main pulmonary artery is not well visualized. Venous: The inferior vena cava is dilated. There is a greater than 50% respiratory change in the inferior vena cava dimension. Contrast: Definity was used to optimize study. A total of 3 ml was used Conclusions Moderate concentric left ventricular hypertrophy is observed. Global left ventricular wall motion and contractility are within normal limits, normal to hyperdynamic LV systolic function. The estimated ejection fraction is 60-65%. Abnormal left ventricular diastolic function is observed. The right ventricular global systolic function is moderately reduced with right ventricle wall thickness is mildly increased. All valves appear structurally normal with normal function. Echo contrast used to optimize endocardial borders. No prior echo to compare. Measurements Name Value Normal Range RVIDd (AP) 2D 1.9 cm (0.9 - 2.6) IVSd (2D) 1.6 cm (0.6 - 1) LVPWd (2D) 1.6 cm (0.6 - 1) LVIDd (2D) 4.6 cm (3.6 - 5.4) LVIDs (2D) 4.1 cm - LV FS (2D) 26 % (25 - 45) Aortic arch 2.4 cm (1.8 - 3.4) Name Value Normal Range LA ESV SP 4CH (A/L) 59.6 ml - LA ESV SP 2CH (A/L) 64.46 ml - LA ESV BP (A/L) 62.59 ml - LA ESV BP (A/L) index 27 ml/m2 - LA ESV SP 4CH (MOD) 56.43 ml - LA ESV SP 2CH (MOD) 61.09 ml - Name Value Normal Range MV E-wave Vmax 0.7 m/sec - MV deceleration time 176.4 msec - MV A-wave Vmax 0.7 m/sec - MV E:A ratio 1 ratio - P. vein S-wave Vmax 0.5 m/sec - P. vein D-wave Vmax 0.4 m/sec - P. vein A-wave duration 90 msec - LV septal e' Vmax 0.06 m/sec - LV lateral e' Vmax 0.06 m/sec - LV E:e' septal ratio 12 ratio - LV E:e' lateral ratio 12 ratio - Name Value Normal Range AV Vmax 1.7 m/sec - AV VTI 27.5 cm - AV peak gradient 11.6 mmHg - AV mean gradient 7.4 mmHg - LVOT Vmax 1.3 m/sec - LVOT VTI 21 cm - LVOT peak gradient 7 mmHg - LVOT mean gradient 4.1 mmHg - LITZY Vmax 1.1 m/sec - Name Value Normal Range RAP 8 mmHg - IVC diameter 2.3 cm - Name Value Normal Range PV Vmax 0.9 m/sec - PV peak gradient 3.2 mmHg -
[2016-10-01] MEDS ORDERED: Perflutren Lipid Microsphere* 3 ML VIAL INJ ONE (16:00)
[2016-10-01] MEDS: Enoxaparin(*) 40 MG/0.4 ML SYR SUBCUT SCH (17:16)
[2016-10-01] MEDS: cefTRIAXone VIAL(*) 1,000 MG in NS 0.9% 50 ML* 50 ML IVPB SCH (20:50)
[2016-10-01] MEDS: Azithromycin IV(*) 500 MG in NS 0.9% 250 ML* 250 ML IVPB SCH (21:14)
[2016-10-02] MEDS: Hydrochlorothiazide TAB* 25 MG PO SCH (06:23)
[2016-10-02] MEDS: Losartan TAB* 25 MG PO SCH (06:24)
[2016-10-02] MEDS: oxyCODONE TAB* 5 MG TAB PO PRN ×2 (06:24→11:14)
[2016-10-02 07:31] LABS: Hematocrit 50 % (42-52); Hemoglobin 15.9 g/dl (14.0-18.0); Mean Corpuscular HGB Conc 32 g/dl (31-36); Mean Corpuscular Hemoglobin 29 pg (27-31); Mean Corpuscular Volume 89 fL (80-94); Mean Platelet Volume 9 um3 (7.4-10.4); Red Blood Count 5.56 10^6/ul (4.0-5.4); Red Cell Distribution Width 14 % (10.5-15); White Blood Count 18.2 10^3/ul (3.5-10.8)
[2016-10-02 07:32] LABS: Add Diff/Slide Review? Slide Review Added; Comments Flag Yes
[2016-10-02] MEDS: Insulin LISPRO* 1 UNITS UNIT SUBCUT SCH ×2 (07:32→12:13)
[2016-10-02 07:42] LABS: BUN/Creatinine Ratio 21.9 (8-20); Calcium 9.7 mg/dL (8.6-10.3); EGFR African American 84.3 (>60); EGFR Non-African American 65.5 (>60)
--- NOTE | 2016-10-02 07:51 | PN ---
Progress Note - Progress Note Note: Pulm consult f/u note 10/02/16. Pt seen and examined at bedside. Pt reports improvement in breathing. No new complaints. Anxious to go home. Active Medications Generic Name Dose Route Start Last Admin Trade Name Freq PRN Reason Stop Dose Admin Albuterol/Ipratropium 1 neb 09/29/16 17:17 Duoneb (Albuterol 2.5 Mg/Ipratropium 0.5 Mg) INH [id number] AWAKE PRN sob/wheexing Dextrose 12.5 gm 09/30/16 07:12 D50w Syringe 50 Ml* IV PUSH .FOR FS < 60 - SS PRN FS < 60 Enoxaparin Sodium 40 mg 09/29/16 18:00 10/01/16 17:16 Lovenox(*) SUBCUT 40 mg Q24H NICK Administration Hydrochlorothiazide 25 mg 10/01/16 06:00 10/02/16 06:23 Hydrodiuril Tab* PO 25 mg 0600 NICK Administration Ceftriaxone Sodium 1,000 mg/ 50 mls @ 200 mls/hr 09/29/16 20:00 10/01/16 20: 50 Sodium Chloride IVPB 200 mls/hr Q24H NICK Administration Azithromycin 500 mg/ Sodium 250 mls @ 250 mls/hr 09/29/16 20:30 10/01/16 21: 14 Chloride IVPB 250 mls/hr Q24H NICK Administration Insulin Human Lispro 0 units 09/30/16 07:30 10/02/16 07:32 Humalog* SUBCUT Not Given AC [facility] Protocol Losartan Potassium 100 mg 10/01/16 06:00 10/02/16 06:24 Cozaar Tab* PO 100 mg 0600 NICK Administration Methylprednisolone Sodium Succinate 60 mg 09/30/16 09:00 10/01/16 10:29 Solu-Medrol* IV 60 mg DAILY NICK Administration Ondansetron HCl 4 mg 09/29/16 17:17 Zofran Inj* IV Q4H PRN NAUSEA/VOMITING Oxycodone HCl 5 mg 09/29/16 20:42 10/02/16 06:24 Roxycodone Tab* PO 5 mg Q4H PRN Administration PAIN Sodium Chloride 1 spray 09/30/16 16:26 Sodium Chloride 0.65% Nasal [place]* BOTH NARES Q4H PRN nasal congestion Tiotropium [place] 1 cap 09/30/16 09:00 10/01/16 08:15 Spiriva Cap.Inh* INH 1 cap DAILY NICK Administration Vital Signs Temp Pulse Resp BP Pulse Ox 98.1 F 83 16 164/93 89 10/02/16 07:34 10/02/16 07:34 10/02/16 06:24 10/02/16 07:34 10/02/16 07:34 Gen: Morbidly obese male in NAD. HEENT: PERRLA, NL JVP Respiratory: Symmetrical Chest Expansion and Respiratory Effort, no rhonchi or wheezing Cardiovascular: RRR, no murmers Abdominal: NL Sounds; No Tenderness; No Distention Extremities: No Edema Skin: No Rash or Ulcers Neurological: Alert and Oriented x 3 Laboratory Results - last 24 hr 10/01/16 10/01/16 10/01/16 07:38 09:11 09:11 WBC 21.6 H RBC 5.69 H Hgb 16.5 Hct 50 MCV 88 MCH 29 MCHC 33 RDW 14 Plt Count 245 MPV 8 Neut % (Auto) 75.4 Lymph % (Auto) 18.1 L [place] % (Auto) 5.5 Eos % (Auto) 0.1 Baso % (Auto) 0.9 Absolute Neuts (auto) 16.3 H Absolute Lymphs (auto) 3.9 Absolute Monos (auto) 1.2 H Absolute Eos (auto) 0 Absolute Basos (auto) 0.2 Absolute Nucleated RBC 0.01 Nucleated RBC % 0 Patient Temperature ABG pH ABG pCO2 ABG pO2 ABG HCO3 ABG O2 Saturation ABG Base Excess Respiration Rate Ventilator Type Vent Mode FiO2 Inspiratory Time PEEP Pressure Support Pressure Control EPAP IPAP BiPAP Sodium Potassium Chloride Carbon Dioxide Anion Gap BUN Creatinine Est GFR ( Amer) Est GFR (Non-Af Amer) BUN/Creatinine Ratio Glucose POC Glucose (mg/dL) 150 H Calcium C-Reactive Protein 19.14 H 10/01/16 10/01/16 10/01/16 11:15 11:37 16:58 WBC RBC Hgb Hct MCV MCH MCHC RDW Plt Count MPV Neut % (Auto) Lymph % (Auto) [place] % (Auto) Eos % (Auto) Baso % (Auto) Absolute Neuts (auto) Absolute Lymphs (auto) Absolute Monos (auto) Absolute Eos (auto) Absolute Basos (auto) Absolute Nucleated RBC Nucleated RBC % Patient Temperature Not Reportable ABG pH 7.44 ABG pCO2 48 H ABG pO2 56 L* ABG HCO3 30.0 ABG O2 Saturation 91.7 L ABG Base Excess 6.9 H Respiration Rate Not Reportable Ventilator Type Not Reportable Vent Mode Not Reportable FiO2 2 Inspiratory Time Not Reportable PEEP Not Reportable Pressure Support Not Reportable Pressure Control Not Reportable EPAP Not Reportable IPAP Not Reportable BiPAP Not Reportable Sodium Potassium Chloride Carbon Dioxide Anion Gap BUN Creatinine Est GFR ( Amer) Est GFR (Non-Af Amer) BUN/Creatinine Ratio Glucose POC Glucose (mg/dL) 153 H 169 H Calcium C-Reactive Protein 10/02/16 10/02/16 10/02/16 06:03 06:03 07:19 WBC 18.2 H RBC 5.56 H Hgb 15.9 Hct 50 MCV 89 MCH 29 MCHC 32 RDW 14 Plt Count 255 MPV 9 Neut % (Auto) 71.7 Lymph % (Auto) 22.3 L [place] % (Auto) 5.5 Eos % (Auto) 0.1 Baso % (Auto) 0.4 Absolute Neuts (auto) 13.1 H Absolute Lymphs (auto) 4.1 Absolute Monos (auto) 1.0 H Absolute Eos (auto) 0 Absolute Basos (auto) 0.1 Absolute Nucleated RBC 0 Nucleated RBC % 0 Patient Temperature ABG pH ABG pCO2 ABG pO2 ABG HCO3 ABG O2 Saturation ABG Base Excess Respiration Rate Ventilator Type Vent Mode FiO2 Inspiratory Time PEEP Pressure Support Pressure Control EPAP IPAP BiPAP Sodium 137 Potassium 4.0 Chloride 98 L Carbon Dioxide 33 H Anion Gap 6 BUN 25 H Creatinine 1.14 Est GFR ( Amer) 84.3 Est GFR (Non-Af Amer) 65.5 BUN/Creatinine Ratio 21.9 H Glucose 114 H POC Glucose (mg/dL) 135 H Calcium 9.7 C-Reactive Protein . Microbiology and Other Data: Microbiology 09/30/16 00:35 Aerobic Blood Culture - Preliminary Blood Venous No Growth Day 1 Anaerobic Blood Culture - Preliminary No Growth Day 1 09/30/16 00:27 Aerobic Blood Culture - Preliminary Blood Venous No Growth Day 1 Anaerobic Blood Culture - Preliminary No Growth Day 1 Diagnostic Imaging: CT chest: Patchy air space opacity in RLL. Evidence of hyperinflation I/R: 61 yo morbidly obese male with a long smoking history, HTN, chronic back pain on disability who presented with c/o SOB and cough admitted for COPD exacerbation and PNA. CAP on antibiotics with clinical improvement CT chest suggestive of hyperinflation and concerning for COPD No prior diagnosis of COPD, but an extensive smoking history with hypoxia and hypercapnia Hypercapnia and hypoxia combination of COPD and OHS Steroid taper, DuoNebs, Spiriva ECHO showed decreased RV systolic function, diastolic dysfunction ABG showed metabolic alkalosis and resp acidosis Suspect MEGHANN/OHS PFTs and sleep study as out pt D/c home today with O2
[2016-10-02] MEDS ORDERED: amLODIPine TAB* 5 MG PO SCH (09:00)
[2016-10-02] MEDS: methylPREDNISolone SOD SUCC* 125 MG 2 ML VIAL IV SCH (09:36)
[2016-10-02] MEDS: Tiotropium CAP.INH* CAP.INH/18 MCG INH SCH (09:36)
[2016-10-02 12:06] VITALS: BP 148/86
--- NOTE | 2016-10-02 16:54 | DS ---
ADDENDUM NOW INCLUDED ON THIS REPORT DISCHARGE SUMMARY: DATE OF ADMISSION: 09/29/16 DATE OF DISCHARGE: 10/02/16 PRIMARY CARE PROVIDER: Dr. Dunne. CONSULTING INDUSTRIAL SEAMSTRESS: Dr. Villar. DISCHARGING PROVIDER: MAINE Zapata SUPERVISING PHYSICIAN: Dr. Imelda Boyer. * (DICTATED BY MAINE ZAPATA) PRIMARY DISCHARGE DIAGNOSES: 1. Pneumonia. 2. Chronic obstructive pulmonary disease exacerbation. 3. Diabetes - new diagnosis with hemoglobin A1c of 6.8% 4. Right ventricular failure. 5. Suspected sleep apnea and obesity hypoventilation syndrome. 6. Persistent hypoxia requiring supplemental oxygen. SECONDARY DISCHARGE DIAGNOSES: 1. Hypertension - poorly controlled. 2. Morbid obesity with a BMI of 41. 3. Chronic back pain. DISCHARGE MEDICATIONS: 1. DuoNeb inhaled q.4 hours as needed for shortness of breath. 2. Hydrochlorothiazide 25 mg p.o. daily. 3. Irbesartan 300 mg p.o. daily. 4. Levofloxacin 750 mg p.o. daily x5 days. 5. Metformin 500 mg p.o. twice daily. 6. Spiriva 1 capsule inhaled daily. 7. Amlodipine 5 mg p.o. daily. 8. Oxycodone 5 mg p.o. q.4 hours as needed for pain. 9. Prednisone at a tapering dose with instructions to take 40 mg x3 days, followed by 20 mg x3 days, followed by 10 mg x3 days. Medication changes: 1. Start metformin. 2. Start Levaquin x5 days. 3. Start prednisone at tapering dose as described above. 4. Start Spiriva. 5. Supplemental oxygen at 2 L consistently. 6. Start DuoNeb. 7. Start amlodipine. 8. Prescription for glucometer testing strips and lancets for daily glucose monitoring. HOSPITAL IMAGIN. Chest x-ray, 09/29/16, is read as no acute process, per personal review, there is a subtle right lower lobe infiltrate. 2. Repeat chest x-ray, 09/30/16, shows no acute process. 3. CT of the chest, 09/30/16, without contrast shows a patchy reticular nodular infiltrate on the right lower lobe most consistent with pneumonia as well as mildly prominent mediastinal lymph nodes and findings consistent with COPD as well as fatty liver infiltration. 4. Transthoracic echocardiogram shows moderate LVH with normal systolic function with an estimated ejection fraction of 60% to 65%, some abnormal diastolic dysfunction, right ventricle shows global systolic dysfunction that is moderately reduced, and some increased wall thickness. No valvular abnormalities. 5. EKG demonstrates sinus rhythm without ischemic changes at a rate of just greater than 100 beats per minute. HOSPITAL COURSE: This is a 61-year-old gentleman with a history of hypertension and chronic back pain as well as greater than [id number] smoking history that had quit just 1 week prior to admission, who presented to the emergency department with complaints of shortness of breath and cough. He originally went to [facility] for evaluation and was found be hypoxic and referred to the emergency department for further evaluation. The patient initially required 4 L via nasal cannula to maintain oxygen saturations in the low-to-mid 90s. His initial chest x-ray was read as no acute process, but there was a subtle right lower lobe infiltrate. The patient had had a productive cough for approximately a week prior to admission with progressive shortness of breath. No associated lower extremity edema, fevers, nausea, vomiting, or abdominal pain. The patient was subsequently admitted for a suspected pneumonia and COPD exacerbation, although he did not have a prior formal diagnosis of COPD. Following admission, the patient's oxygen demands continued to increase requiring up to 7 L to maintain oxygen saturations in the low-to-mid 90s at rest. Despite use of corticosteroids, initiation of Spiriva, regular DuoNeb, and initiation of ceftriaxone and azithromycin to cover for community-acquired pathogens. Despite his increase in oxygen demands, the patient's complaint of dyspnea more improving. A repeat chest x-ray was performed, which still did not show large infiltrate. D- dimer was added to original labs, which was negative. CT of the chest was subsequently performed without contrast, which did demonstrate a patchy infiltrate in the right lower lobe, but the severity of the infiltrate was quite mild and certainly did not match his oxygen needs. For this reason, an echocardiogram was ordered and consultation was requested with plate preparer, Dr. Villar. Echocardiogram demonstrated right ventricular dysfunction, but pulmonary pressures were not measured. He also had LVH with some degree of diastolic dysfunction with a preserved left ventricular ejection fraction. Dr. Villar agreed that the patient's symptoms were likely due to pneumonia and subsequent COPD exacerbation and agreed with his treatment plan. His echocardiogram suggested that he likely has a degree of obstructive sleep apnea and certainly his body habitus suggest that as well. Also, consider obesity hypoventilation syndrome as the possible etiology of his profound hypoxia with subsequent exacerbation of COPD with pneumonia leading to his significant oxygen demands. After 2 days of admission, his oxygen demands decreased and he was able to maintain saturations in the low-to-mid 90s at rest and with activity with 2 L via supplemental O2. The patient had very little symptoms and was anxious to return home. Also, of note, the patient was hyperglycemic at the time of admission with a random glucose of greater than 200 mg/dL. Hemoglobin A1c was checked and noted to be 6.8%. The patient states that he has been borderline diabetic for quite some time, but his hemoglobin has always been below threshold for medication. The patient was managed with sliding scale Humalog during hospital stay with the anticipation that he would be hyperglycemic with the use of corticosteroids. Recommend initiating metformin at the time of discharge. DISPOSITION: The patient is being discharged to home with supplemental oxygen. He requires close followup with his primary care provider regarding this admission as well as followup with Dr. Villar as an outpatient for pulmonary function testing as well as an outpatient sleep study. Multiple medication changes have been outlined. MAINE ZAPATA ADDENDUM: At the time of discharge his sputum culture returned with 1+ mold. It appears that the isolate has been sent to [facility] for identification, otherwise normal asia was identified. The patient is improving with treatment for community acquired bacterial pathogen and she had an antifungal at the time of discharge, but followup from primary care and/or Pulmonology on the final identification of the mold specimen is recommended. MAINE ZAPATA CC: Dr. Dunne; Dr. Villar * [id number]/[facility] #: [id number]/[facility] #: [id number] [place]
--- NOTE | 2016-10-02 20:57 | DS ---
CC: Dr Dunne; Dr. Villar DISCHARGE SUMMARY: ADDENDUM: AT the time of discharge his sputum culture returned with 1+ mold. It appears that the isolate has been sent to [facility] for identification, otherwise normal asia was identified. The patient is improving with treatment for community acquired bacterial pathogen and she had an antifungal at the time of discharge, but followup from primary care and/or Pulmonology on the final identification of the mold specimen is recommended. MAINE ZAPATA [id number]/[facility] #: [id number] [place]
== END 2016-10-02 15:20 | disposition home or self-care (01) | DRG 140 ==
LOC: ED 12:11 → MED 17:17
PROVIDERS: ADMIT Hospitalist; ATTEND Internal Medicine
DX: J44.0 Chronic obstructive pulmonary disease with (acute) lower respiratory infection (principal); J18.9 Pneumonia, unspecified organism; J96.91 Respiratory failure, unspecified with hypoxia; I11.0 Hypertensive heart disease with heart failure; I50.9 Heart failure, unspecified; K76.0 Fatty (change of) liver, not elsewhere classified; E66.2 Morbid (severe) obesity with alveolar hypoventilation; Z68.41 Body mass index [BMI] 40.0-44.9, adult; J44.1 Chronic obstructive pulmonary disease with (acute) exacerbation; Z99.81 Dependence on supplemental oxygen; G89.29 Other chronic pain; M54.9 Dorsalgia, unspecified; Z79.84 Long term (current) use of oral hypoglycemic drugs; Z87.891 Personal history of nicotine dependence; E11.65 Type 2 diabetes mellitus with hyperglycemia; Z82.49 Family history of ischemic heart disease and other diseases of the circulatory system; Z83.3 Family history of diabetes mellitus
CPT/HCPCS: 36415; 36600; 71020; 71250; 80048; 80053; 82803; 83036; 83605; 84484; 85025; 85379; 86140; 87040; 87070; 87107; 87205; 93005; 93306; 94640; 94760; 99213; 99406; A9270-GY; C8929; G0463; J0456; J0696; J1650; J2930; J7512